=== PATIENT | female | born 1950 | race Caucasian/White ===

== ENCOUNTER → 2020-10-06 | Outpatient (CLI) | payer MEDICARE ==
[~2020-10-06] VITALS: Ht 167.6 cm; Wt 61.4 kg
[~2020-10-06] MED LIST: ERTAPENEM SODIUM 1 GM in NS MINI-BAG PLUS 50 ML IV ONE; SODIUM CHLORIDE 0.9% INJ 10 ML SYR IV PRN; SODIUM CHLORIDE 0.9% INJ 10 ML SYR IV SCH
[2020-10-06 16:12] VITALS: BP 154/88
[2020-10-06 17:12] VITALS: BP 136/71
== END ==
LOC: M INFU 15:51
PROVIDERS: ATTEND Internal Medicine Nephrology
DX: A41.50 Gram-negative sepsis, unspecified (principal)

== ENCOUNTER → 2020-10-06 | Outpatient (CLI) | payer MEDICARE ==
[2020-10-06 08:32] LABS: HEMATOCRIT 31.9 % (36.0-47.0); HEMOGLOBIN 9.7 g/dl (12.0-15.5); MEAN CORPUSCULAR HEMOGLOBIN 27.1 pg (27.0-33.0); MEAN CORPUSCULAR HGB CONC 30.4 g/dl (32.0-36.5); MEAN CORPUSCULAR VOLUME 89.1 fl (80.0-96.0); PLATELET COUNT, AUTOMATED 153 10^3/uL (150-450); RED BLOOD COUNT 3.58 10^6/uL (4.00-5.40)
[2020-10-06 09:04] LABS: ALBUMIN 2.9 GM/DL (3.2-5.2); BILIRUBIN,DIRECT 0.2 MG/DL (0.0-0.2); BILIRUBIN,TOTAL 0.6 MG/DL (0.2-1.0); CALCIUM LEVEL 9.1 MG/DL (8.8-10.2); CREATININE FOR GFR 2.18 MG/DL (0.55-1.30); GLOMERULAR FILTRATION RATE 23.7 (>39); POTASSIUM SERUM 4.3 MEQ/L (3.5-5.1); TOTAL PROTEIN 6.7 GM/DL (6.4-8.2)
--- NOTE | 2020-10-07 14:13 | REP ---
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 3 hour, 4 hour, and 24 hour delayed scintigraphy was obtained. FINDINGS: Normal uptake is seen within the spleen. No abnormal activity is seen. IMPRESSION: Negative exam <Electronically signed by Juan Schwarz > 10/07/20 [id number]
== END ==
LOC: M RAD 07:04
PROVIDERS: ATTEND Internal Medicine Nephrology
DX: N17.9 Acute kidney failure, unspecified (principal); A41.50 Gram-negative sepsis, unspecified
CPT/HCPCS: 36415; 78804; 80048; 80076; 85027; 96365; A9570; J1335; J1642